=== PATIENT | female | born 1960 | race Caucasian/White ===

== ENCOUNTER 2020-01-16 15:22 | Inpatient (IN) | payer BC ==
[~2020-01-16] VITALS: Ht 157.5 cm; Wt 98.2 kg
[2020-01-16 16:10] LABS: PARTIAL THROMBOPLASTIN TIME 24 SECONDS (22-32)
[2020-01-16] MEDS ORDERED: ceFOXitin 1 GM/D5W 50mL IVPB 1,000 GM in normal saline 100ml IV soln 100 ML IV ONE (16:40)
[2020-01-16] MEDS ORDERED: ipratropium/albuterol 3ml nebule NEB ONE (17:30)
[2020-01-16] MEDS ORDERED: RAMI10CA69 PO (17:50)
[2020-01-16] MEDS ORDERED: ondansetron/PF 4mg/2ml inj IV PRN (17:50)
[2020-01-16] MEDS ORDERED: morphine 2 MG/ML inj. syringe IV PRN ×2 (17:50)
[2020-01-16] MEDS ORDERED: HYDROcodone/acetaminophen 5mg/325mg tablet PO PRN (17:50)
[2020-01-16] MEDS ORDERED: LORazepam 2 mg/ml vial IV PRN (17:50)
[2020-01-16] MEDS ORDERED: acetaminophen 325mg tablet PO PRN (17:50)
[2020-01-16] MEDS ORDERED: magnesium 4gm in 100ml NS 100 ML IV PRN (17:50)
[2020-01-16] MEDS ORDERED: magnesium Cl slow-release 64mg tablet PO PRN (17:50)
[2020-01-16] MEDS ORDERED: ALLO100T25 PO (17:50)
[2020-01-16] MEDS ORDERED: LORazepam 1 MG tablet PO PRN (17:50)
[2020-01-16] MEDS ORDERED: TRIA1TAB5 PO (17:50)
[2020-01-16] MEDS ORDERED: ALBU90AE IH (17:50)
[2020-01-16] MEDS ORDERED: mag hydrox/Alum hydrox/simeth 30ml oral suspension PO PRN (17:50)
[2020-01-16] MEDS ORDERED: potassium CL 10mEq/100ml bag 100 ML IV PRN ×2 (17:50)
[2020-01-16] MEDS ORDERED: magnesium 2GM in 50ml NS 50 ML IV PRN (17:50)
[2020-01-16] MEDS ORDERED: potassium Cl 20 mEq SR tablet PO PRN ×2 (17:50)
[2020-01-16] MEDS ORDERED: ATOR20TA66 PO (17:50)
[2020-01-16] MEDS ORDERED: LABE200T5 PO (17:50)
[2020-01-16] MEDS ORDERED: ceFOXitin 1 GM/D5W 50mL IVPB 1 GM in normal saline 100ml IV soln 100 ML IV ONE (18:05)
[2020-01-16] MEDS ORDERED: non-formulary drug (Albuterol Sulfate (Proair Respiclick) 2 PUFFS) IH PRN (18:15)
[2020-01-16] MEDS ORDERED: albuterol 2.5 MG/3 ML nebule NEB PRN (18:15)
--- NOTE | 2020-01-16 19:15 | NUR ---
Patient in room ED 6. I have received report from Margarita MCKEE and had the opportunity to ask questions and assume patient care.
[2020-01-16 19:34] VITALS: BP 126/61
[2020-01-16] MEDS: K and/or MAG REPLACEMENT MC SCH (20:45)
[2020-01-16] MEDS ORDERED: temazepam 15mg capsule PO PRN (21:00)
[2020-01-16] MEDS: ciprofloxacin lact 400MG/200ML 200 ML IV SCH (21:19)
[2020-01-16] MEDS: labetalol 100mg tablet PO SCH (21:19)
[2020-01-16] MEDS: normal saline 1000ml 1,000 ML IV SCH (21:19)
[2020-01-16] MEDS: docusate sod 100mg capsule PO SCH (21:19)
[2020-01-16] MEDS: allopurinol 100mg tablet PO SCH (21:20)
[2020-01-16] MEDS: heparin, porcine 5000 units/ml vial SQ SCH (21:36)
[2020-01-16 22:00] VITALS: BP 126/48
[2020-01-16] MEDS: metroNIDAZOLE-Flagyl 500mg/NS 100 ML IV SCH (23:24)
[2020-01-17] MEDS: acetaminophen 325mg tablet PO PRN (02:19)
--- NOTE | 2020-01-17 02:30 | NUR ---
pt wearing 2 yellow chains with 4 charms. removed in anticipation for procedure today. Items placed in a labeled denture cup & placed in pts purse per her request. (on night stand)
[2020-01-17 03:13] LABS: BASOPHILS % (AUTO) 0.2 % (0-1); EOSINOPHILS % (AUTO) 0.3 % (0-6); HEMOGLOBIN 13.6 g/dl (12.0-16.0); LYMPHOCYTES # (AUTO) 1.2 X10'3 (1.1-4.8); LYMPHOCYTES % (AUTO) 11.1 % (21-51); MEAN CORPUSCULAR HEMOGLOBIN 36.3 PG (27.0-31.0); MEAN CORPUSCULAR HGB CONC 34.1 g/dL (33.0-36.5); MEAN CORPUSCULAR VOLUME 106.3 FL (78-98); MEAN PLATELET VOLUME 7.4 FL (7.4-10.4); MONOCYTES # (AUTO) 0.6 X10'3 (0-0.9); NEUTROPHILS # (AUTO) 8.9 X10'3 (1.8-7.7); NEUTROPHILS % (AUTO) 82.4 % (42-75); PLATELET COUNT 144 X10'3 (140-440); RED BLOOD COUNT 3.76 X10'6 (4.20-5.60); WHITE BLOOD COUNT 10.8 X10'3 (4.5-11.0)
[2020-01-17 03:32] LABS: ALANINE AMINOTRANSFERASE 152 U/L (12-78); ALBUMIN 2.9 G/DL (3.4-5.0); ALKALINE PHOSPHATASE 137 IU/L (46-116); ANION GAP 7 (8-16); ASPARTATE AMINO TRANSFERASE 137 U/L (10-37); BILIRUBIN,TOTAL 2.1 MG/DL (0.1-1.0); BLOOD UREA NITROGEN 6 MG/DL (7-18); BUN/CREATININE RATIO 9.5 (6.6-38.0); CALCIUM 8.6 MG/DL (8.5-10.1); CHLORIDE 102 MMOL/L (99-107); CHOL/HDL RATIO 2.3 (0.00-4.99); CHOLESTEROL 115 MG/DL (0-200); CREATININE 0.63 MG/DL (0.40-0.90); GLUCOSE 158 MG/DL (70-104); HDL CHOLESTEROL 51 MG/DL (35-60); LDL CHOLESTEROL 42 MG/DL (50-100); MAGNESIUM 2.7 MG/DL (1.5-2.4); POTASSIUM 3.8 MMOL/L (3.5-5.1); SODIUM 137 MMOL/L (135-145); TOTAL CARBON DIOXIDE 28.3 MMOL/L (24-32); TOTAL PROTEIN 5.9 G/DL (6.4-8.2); TRIGLYCERIDES 167 MG/DL (20-135); eGFR > 90 ML/MIN
[2020-01-17 06:00] VITALS: BP 129/56
--- NOTE | 2020-01-17 06:05 | NUR ---
received report from uzma jacob
--- NOTE | 2020-01-17 06:25 | NUR ---
Problems reprioritized. Patient report given, questions answered & plan of care reviewed with Indu MCKEE.
[2020-01-17] MEDS: metroNIDAZOLE-Flagyl 500mg/NS 100 ML IV SCH ×2 (07:28→15:50)
[2020-01-17] MEDS: docusate sod 100mg capsule PO SCH ×2 (07:29→20:38)
[2020-01-17] MEDS: allopurinol 100mg tablet PO SCH ×2 (07:30→20:38)
[2020-01-17] MEDS: atorvastatin 20mg tablet PO SCH (07:31)
[2020-01-17] MEDS: labetalol 100mg tablet PO SCH ×2 (07:31→21:01)
[2020-01-17] MEDS: lisinopril 20mg tablet PO SCH (07:32)
[2020-01-17] MEDS: heparin, porcine 5000 units/ml vial SQ SCH ×2 (07:34→20:00)
[2020-01-17] MEDS: nicotine 14mg patch - 24hr TD SCH (07:36)
[2020-01-17] MEDS: normal saline 1000ml 1,000 ML IV SCH ×3 (07:37→23:47)
[2020-01-17] MEDS: K and/or MAG REPLACEMENT MC SCH ×2 (07:39→20:00)
--- NOTE | 2020-01-17 08:49 | NUR ---
PT IS WHEELED DOWN TO HIDA SCAN AT THIS TIME
[2020-01-17] MEDS ORDERED: sincalide inj 1.2 MCG in normal saline 50ml IV soln 50 ML IV ONE (10:00)
[2020-01-17] MEDS: albuterol 2.5 MG/3 ML nebule NEB SCH ×4 (12:00→23:43)
[2020-01-17 12:15] VITALS: BP 113/59
[2020-01-17] MEDS: ciprofloxacin lact 400MG/200ML 200 ML IV SCH ×2 (12:20→20:40)
[2020-01-17] MEDS: HYDROcodone/acetaminophen 10/325mg tab PO PRN ×2 (12:26→16:23)
[2020-01-17 18:00] VITALS: BP 100/53
--- NOTE | 2020-01-17 18:06 | NUR ---
gave report to uzma shepherd
[2020-01-17 20:30] VITALS: BP 135/81
[2020-01-17 22:00] VITALS: BP 111/54
[2020-01-18] VITALS (20 sets, daily range): BP systolic 100–152; BP diastolic 40–88
[2020-01-18] MEDS: metroNIDAZOLE-Flagyl 500mg/NS 100 ML IV SCH ×3 (00:12→16:00)
[2020-01-18] MEDS: albuterol 2.5 MG/3 ML nebule NEB SCH ×6 (03:03→23:00)
[2020-01-18 04:54] LABS: BASOPHILS % (AUTO) 0.1 % (0-1); EOSINOPHILS # (AUTO) 0.1 X10'3 (0-0.9); EOSINOPHILS % (AUTO) 0.5 % (0-6); HEMATOCRIT 36.2 % (35.0-45.0); HEMOGLOBIN 12.3 g/dl (12.0-16.0); LYMPHOCYTES # (AUTO) 1.4 X10'3 (1.1-4.8); LYMPHOCYTES % (AUTO) 12.4 % (21-51); MEAN CORPUSCULAR HEMOGLOBIN 36.1 PG (27.0-31.0); MEAN CORPUSCULAR VOLUME 106.1 FL (78-98); MEAN PLATELET VOLUME 7.7 FL (7.4-10.4); MONOCYTES # (AUTO) 0.7 X10'3 (0-0.9); MONOCYTES % (AUTO) 5.9 % (2-12); NEUTROPHILS # (AUTO) 9.1 X10'3 (1.8-7.7); NEUTROPHILS % (AUTO) 81.1 % (42-75); PLATELET COUNT 126 X10'3 (140-440); RED BLOOD COUNT 3.41 X10'6 (4.20-5.60); RED CELL DISTRIBUTION WIDTH 13.3 % (11.5-14.5); WHITE BLOOD COUNT 11.2 X10'3 (4.5-11.0)
[2020-01-18 05:10] LABS: ALANINE AMINOTRANSFERASE 80 U/L (12-78); ALBUMIN 2.6 G/DL (3.4-5.0); ALBUMIN/GLOBULIN RATIO 0.8 (1.1-1.5); ALKALINE PHOSPHATASE 178 IU/L (46-116); ANION GAP 5 (8-16); ASPARTATE AMINO TRANSFERASE 44 U/L (10-37); BILIRUBIN,TOTAL 2.3 MG/DL (0.1-1.0); BLOOD UREA NITROGEN 9 MG/DL (7-18); BUN/CREATININE RATIO 15.5 (6.6-38.0); CALCIUM 8.8 MG/DL (8.5-10.1); CHLORIDE 102 MMOL/L (99-107); CREATININE 0.58 MG/DL (0.40-0.90); GLUCOSE 136 MG/DL (70-104); POTASSIUM 3.7 MMOL/L (3.5-5.1); SODIUM 135 MMOL/L (135-145); TOTAL CARBON DIOXIDE 27.6 MMOL/L (24-32); TOTAL PROTEIN 5.8 G/DL (6.4-8.2); eGFR > 90 ML/MIN
--- NOTE | 2020-01-18 07:05 | NUR ---
Patient in room [facility]TH[facility] 4015A. I have received report from RAFI BOWEN and had the opportunity to ask questions and assume patient care.
[2020-01-18] MEDS: K and/or MAG REPLACEMENT MC SCH ×2 (07:17→20:00)
[2020-01-18] MEDS: labetalol 100mg tablet PO SCH ×2 (07:45→19:44)
[2020-01-18] MEDS: atorvastatin 20mg tablet PO SCH (07:53)
[2020-01-18] MEDS: docusate sod 100mg capsule PO SCH ×2 (07:53→19:44)
[2020-01-18] MEDS: lisinopril 20mg tablet PO SCH (07:54)
[2020-01-18] MEDS: heparin, porcine 5000 units/ml vial SQ SCH ×2 (07:59→19:50)
[2020-01-18] MEDS: allopurinol 100mg tablet PO SCH ×2 (07:59→19:43)
[2020-01-18] MEDS: nicotine 14mg patch - 24hr TD SCH (08:00)
[2020-01-18] MEDS ORDERED: BUPIVAcaine/PF 2.5 mg/ml (0.25%) 30ml vial ONE (08:21)
[2020-01-18] MEDS ORDERED: ceFAZolin 1000mg inj ONE (08:21)
--- NOTE | 2020-01-18 09:45 | NUR ---
from lab...pt has [place] antibodies, will try to find match for OR. paged [phone] Dr Bo.
[2020-01-18] MEDS: normal saline 1000ml 1,000 ML IV SCH ×2 (09:47→22:58)
--- NOTE | 2020-01-18 09:50 | NUR ---
DR CHONG CALLED BACK, NOTIFIED OF BLOOD ANTIBODIES, ALREADY AWARE
[2020-01-18] MEDS ORDERED: iohexol 300mg/ml 100ml inj. ONE (10:03)
[2020-01-18] MEDS ORDERED: ringers solution, lacted 1,000 ML IV SCH (11:29)
[2020-01-18] MEDS ORDERED: hydrALAZINE 20mg/ml inj. IV PRN (11:30)
[2020-01-18] MEDS ORDERED: fentaNYL/PF 50MCG/1 ML 2ML syringe IV PRN ×2 (11:30)
[2020-01-18] MEDS ORDERED: morphine 4 MG/ML inj SYRINge IV PRN (11:30)
[2020-01-18] MEDS ORDERED: morphine 2 MG/ML inj. syringe IV PRN (11:30)
[2020-01-18] MEDS ORDERED: labetalol 20mg/4ml (5mg/ml) syringe IV PRN (11:30)
[2020-01-18] MEDS ORDERED: ondansetron/PF 4mg/2ml inj IV PRN ×2 (11:30→16:50)
[2020-01-18] MEDS: ciprofloxacin lact 400MG/200ML 200 ML IV SCH ×2 (12:31→19:46)
[2020-01-18] MEDS ORDERED: rocuronium 10mg/ml inj IV ONE ×2 (14:41→15:01)
[2020-01-18] MEDS ORDERED: sevoflurane 250ml liquid IH ONE (14:41)
[2020-01-18] MEDS ORDERED: fentaNYL/PF 50MCG/1 ML 2ML syringe ONE (14:47)
[2020-01-18] MEDS ORDERED: midazolam 2 mg/2 ml injection ONE (14:47)
[2020-01-18] MEDS ORDERED: propofol inj 20 ML IV ONE (15:00)
[2020-01-18] MEDS ORDERED: LIDOcaine 2% (20mg/ml) 5ml vial ONE (15:01)
[2020-01-18] MEDS ORDERED: ondansetron/PF 4mg/2ml inj ONE (15:03)
[2020-01-18] MEDS ORDERED: dexamethasone sod phosphate 4mg/ml inj. ONE (15:03)
[2020-01-18] MEDS ORDERED: sugammadex 200mg/2ml injection IV ONE (15:18)
[2020-01-18] MEDS ORDERED: albumin (Human) 5% 250ml 250 ML IV ONE (15:38)
[2020-01-18] MEDS ORDERED: gentamicin 40 MG/1 ML inj ONE (15:57)
[2020-01-18] MEDS ORDERED: clindamycin phosphate 150mg/ml inj. ONE (15:57)
[2020-01-18] MEDS ORDERED: HYDROcodone/acetaminophen 10/325mg tab PO PRN (16:50)
--- NOTE | 2020-01-18 16:55 | NUR ---
Received from OR via BED, accompanied by Anesthesiologist TANA and report given by Anesthesiolgist. PT SLEEPY, OXYGENATING 90-92% ON 10 LPM 02 VIA MASK, NO RESP DISTRESS. ANESTHESIA SAYS SAO2 OVER 90% IS FINE. ENCOURAGED PATIENT TO C&DB. PT DENIES NAUSEA OR PAIN AT THIS TIME. SURGERY WENT LAP TO OPEN, 2 LARGE DSGS TO ABD. CDI. SANDRO DRAIN TO ABD WITH SEROSANGINOUS OUTPUT. FC PATENT WITH DARK KYLE URINE. SCDS ON LEGS. VSS. RESP TX ORDERED.
--- NOTE | 2020-01-18 17:05 | NUR ---
Patient in room [facility]TH[facility] 4015A. I have received report from RAFI ZARATE IN RECOVERY and had the opportunity to ask questions and assume patient care.
[2020-01-18] MEDS ORDERED: ipratropium/albuterol 3ml nebule IH ONE (17:10)
--- NOTE | 2020-01-18 17:45 | NUR ---
V/S STABLE, NO RESP DISTRESS. . ENCOURAGED PATIENT TO C&DB. PT DENIES NAUSEA OR PAIN AT THIS TIME. 2 LARGE DSGS TO ABD. CDI. SANDRO DRAIN TO ABD WITH SEROSANGINOUS OUTPUT. FC PATENT WITH DARK KYLE URINE. SCDS ON LEGS. VSS. RESP TX GIVEN. PATIENT PLACED ON TELE AND TAKEN TO 4015 A WITH ALL BELONGINGS AND HOOKED UP TO MONITORS IN ROOM AND REPORT GIVEN TO SPECIAL PROCEDURES TECH WHO HAS TAKEN OVER PATIENT CARE.
--- NOTE | 2020-01-18 18:42 | NUR ---
Problems reprioritized. Patient report given, questions answered & plan of care reviewed with RAFI MEDINA & RAFI CAMACHO.
[2020-01-18] MEDS: lactobacillus rhamnosus 10,000 MMU CELLS/CAPSULE PO SCH (20:00)
--- NOTE | 2020-01-18 21:00 | NUR ---
patient found sitting in chair to have found large amount of saturation on gown. Patient placed in chair at 1999 at that time patients dressing was clean dry and intact. Patient placed back in bed and vitals taken 130/[address] Wayne paged at [phone]. Dr sommer returned call [phone] said no new orders dressing reinforced with ABD and foam tape. Report given to lisa she is assuming patient care as of 2129
--- NOTE | 2020-01-18 21:45 | NUR ---
Patient in room [facility]TH[facility] 4015. I have received report from Sophia RN and Joanie RN and had the opportunity to ask questions and assume patient care. Pt is currently resting in bed with no signs of distress. She is on 2L via N/C, Bp 130/58. BLL, call light is in reach, non skid socks are on. Will continue to monitor.
--- NOTE | 2020-01-18 21:46 | NUR ---
Patient in room [facility]TH[facility] 4015. I have received report from Mary and had the opportunity to ask questions and assume patient care.
[2020-01-18] MEDS: HYDROcodone/acetaminophen 10/325mg tab PO PRN (22:02)
--- NOTE | 2020-01-18 22:05 | NUR ---
Dr Bo came to see the pt. Wants Q1h vitals and to be called if pt status changes.
[2020-01-18 22:46] LABS: BASOPHILS % (AUTO) 0.2 % (0-1); EOSINOPHILS % (AUTO) 0 % (0-6); HEMOGLOBIN 11.9 g/dl (12.0-16.0); LYMPHOCYTES # (AUTO) 0.4 X10'3 (1.1-4.8); MEAN PLATELET VOLUME 7.8 FL (7.4-10.4); MONOCYTES # (AUTO) 0.3 X10'3 (0-0.9)
[2020-01-18 22:47] LABS: HEMATOCRIT 34.4 % (35.0-45.0); MEAN CORPUSCULAR HEMOGLOBIN 36.9 PG (27.0-31.0); MEAN CORPUSCULAR HGB CONC 34.6 g/dL (33.0-36.5); MEAN CORPUSCULAR VOLUME 106.7 FL (78-98); NEUTROPHILS # (AUTO) 8.2 X10'3 (1.8-7.7); NEUTROPHILS % (AUTO) 91.8 % (42-75); RED BLOOD COUNT 3.22 X10'6 (4.20-5.60); WHITE BLOOD COUNT 8.9 X10'3 (4.5-11.0)
[2020-01-18 23:02] LABS: PLATELET COUNT 136 X10'3 (140-440)
[2020-01-19] VITALS (10 sets, daily range): BP systolic 104–138; BP diastolic 46–67
[2020-01-19] MEDS: metroNIDAZOLE-Flagyl 500mg/NS 100 ML IV SCH ×2 (00:30→08:39)
[2020-01-19] MEDS: HYDROcodone/acetaminophen 10/325mg tab PO PRN ×3 (02:14→14:57)
[2020-01-19] MEDS: albuterol 2.5 MG/3 ML nebule NEB SCH ×6 (03:00→23:00)
[2020-01-19 06:07] LABS: BASOPHILS % (AUTO) 0.1 % (0-1); EOSINOPHILS % (AUTO) 0 % (0-6); HEMATOCRIT 34.1 % (35.0-45.0); HEMOGLOBIN 11.6 g/dl (12.0-16.0); LYMPHOCYTES # (AUTO) 0.6 X10'3 (1.1-4.8); LYMPHOCYTES % (AUTO) 7.2 % (21-51); MEAN CORPUSCULAR HEMOGLOBIN 36.4 PG (27.0-31.0); MEAN CORPUSCULAR HGB CONC 34.1 g/dL (33.0-36.5); MEAN CORPUSCULAR VOLUME 106.8 FL (78-98); MONOCYTES # (AUTO) 0.4 X10'3 (0-0.9); MONOCYTES % (AUTO) 5.3 % (2-12); NEUTROPHILS # (AUTO) 6.8 X10'3 (1.8-7.7); NEUTROPHILS % (AUTO) 87.4 % (42-75); PLATELET COUNT 143 X10'3 (140-440); RED BLOOD COUNT 3.19 X10'6 (4.20-5.60); WHITE BLOOD COUNT 7.8 X10'3 (4.5-11.0)
[2020-01-19 06:27] LABS: ALANINE AMINOTRANSFERASE 73 U/L (12-78); ALBUMIN 2.5 G/DL (3.4-5.0); ALBUMIN/GLOBULIN RATIO 0.8 (1.1-1.5); ALKALINE PHOSPHATASE 230 IU/L (46-116); ANION GAP 4 (8-16); ASPARTATE AMINO TRANSFERASE 63 U/L (10-37); BLOOD UREA NITROGEN 9 MG/DL (7-18); BUN/CREATININE RATIO 17.6 (6.6-38.0); CALCIUM 8.6 MG/DL (8.5-10.1); CHLORIDE 107 MMOL/L (99-107); CREATININE 0.51 MG/DL (0.40-0.90); GLUCOSE 162 MG/DL (70-104); POTASSIUM 4.5 MMOL/L (3.5-5.1); SODIUM 140 MMOL/L (135-145); TOTAL CARBON DIOXIDE 28.6 MMOL/L (24-32); TOTAL PROTEIN 5.8 G/DL (6.4-8.2); eGFR > 90 ML/MIN
--- NOTE | 2020-01-19 06:48 | NUR ---
Problems reprioritized. Patient report given, questions answered & plan of care reviewed with Berta MCKEE.
[2020-01-19] MEDS: normal saline 1000ml 1,000 ML IV SCH ×3 (06:57→19:35)
--- NOTE | 2020-01-19 07:32 | NUR ---
Patient in room ORTH[facility] 4015. I have received report from Hedy MCKEE and had the opportunity to ask questions and assume patient care.
[2020-01-19] MEDS: nicotine 14mg patch - 24hr TD SCH (08:00)
[2020-01-19] MEDS: allopurinol 100mg tablet PO SCH ×2 (08:00→19:29)
[2020-01-19] MEDS: K and/or MAG REPLACEMENT MC SCH ×2 (08:00→20:00)
[2020-01-19] MEDS: lactobacillus rhamnosus 10,000 MMU CELLS/CAPSULE PO SCH ×2 (08:40→19:29)
[2020-01-19] MEDS: atorvastatin 20mg tablet PO SCH (08:40)
[2020-01-19] MEDS: docusate sod 100mg capsule PO SCH ×2 (08:40→19:29)
[2020-01-19] MEDS: labetalol 100mg tablet PO SCH ×2 (08:41→19:29)
[2020-01-19] MEDS: lisinopril 20mg tablet PO SCH (08:41)
[2020-01-19] MEDS: heparin, porcine 5000 units/ml vial SQ SCH ×2 (08:42→19:29)
[2020-01-19] MEDS: ciprofloxacin lact 400MG/200ML 200 ML IV SCH ×2 (10:02→19:34)
[2020-01-19] MEDS ORDERED: cycloSPORINE 0.05% ophthalmic emulsion EACHEYE PRN (10:05)
[2020-01-19] MEDS ORDERED: omega-3 acid ethyl esters 1GM capsule PO ONE (10:05)
[2020-01-19] MEDS: metroNIDAZOLE 500mg tablet PO SCH (16:19)
--- NOTE | 2020-01-19 18:15 | NUR ---
Problems reprioritized. Patient report given, questions answered & plan of care reviewed with Sophia MCKEE and Joanie MCKEE.
[2020-01-20] MEDS: metroNIDAZOLE 500mg tablet PO SCH ×2 (00:08→09:18)
[2020-01-20] MEDS: albuterol 2.5 MG/3 ML nebule NEB SCH ×3 (03:00→11:16)
[2020-01-20] MEDS: normal saline 1000ml 1,000 ML IV SCH (05:18)
[2020-01-20 06:00] VITALS: BP 143/74
--- NOTE | 2020-01-20 06:26 | NUR ---
Problems reprioritized. Patient report given, questions answered & plan of care reviewed with
--- NOTE | 2020-01-20 06:36 | NUR ---
Patient in room [facility]TH[facility] 4015A. I have received report from RAFI TONEY and had the opportunity to ask questions and assume patient care.
[2020-01-20 06:41] LABS: BASOPHILS % (AUTO) 0.2 % (0-1); EOSINOPHILS # (AUTO) 0.1 X10'3 (0-0.9); EOSINOPHILS % (AUTO) 1.5 % (0-6); HEMATOCRIT 35.6 % (35.0-45.0); HEMOGLOBIN 11.8 g/dl (12.0-16.0); LYMPHOCYTES # (AUTO) 1.7 X10'3 (1.1-4.8); LYMPHOCYTES % (AUTO) 21.8 % (21-51); MEAN CORPUSCULAR HEMOGLOBIN 35.5 PG (27.0-31.0); MEAN CORPUSCULAR HGB CONC 33.1 g/dL (33.0-36.5); MEAN CORPUSCULAR VOLUME 107.4 FL (78-98); MEAN PLATELET VOLUME 7.6 FL (7.4-10.4); MONOCYTES # (AUTO) 0.7 X10'3 (0-0.9); MONOCYTES % (AUTO) 9.2 % (2-12); NEUTROPHILS # (AUTO) 5.2 X10'3 (1.8-7.7); NEUTROPHILS % (AUTO) 67.3 % (42-75); PLATELET COUNT 186 X10'3 (140-440); RED BLOOD COUNT 3.31 X10'6 (4.20-5.60); RED CELL DISTRIBUTION WIDTH 13.1 % (11.5-14.5); WHITE BLOOD COUNT 7.8 X10'3 (4.5-11.0)
[2020-01-20 07:03] LABS: ALANINE AMINOTRANSFERASE 58 U/L (12-78); ALBUMIN 2.6 G/DL (3.4-5.0); ALBUMIN/GLOBULIN RATIO 0.8 (1.1-1.5); ALKALINE PHOSPHATASE 190 IU/L (46-116); ANION GAP 3 (8-16); ASPARTATE AMINO TRANSFERASE 37 U/L (10-37); BILIRUBIN,TOTAL 0.7 MG/DL (0.1-1.0); BLOOD UREA NITROGEN 8 MG/DL (7-18); BUN/CREATININE RATIO 14.8 (6.6-38.0); CALCIUM 8.7 MG/DL (8.5-10.1); CHLORIDE 108 MMOL/L (99-107); CREATININE 0.54 MG/DL (0.40-0.90); GLUCOSE 138 MG/DL (70-104); MAGNESIUM 1.9 MG/DL (1.5-2.4); POTASSIUM 3.3 MMOL/L (3.5-5.1); SODIUM 142 MMOL/L (135-145); TOTAL CARBON DIOXIDE 31.1 MMOL/L (24-32); TOTAL PROTEIN 5.8 G/DL (6.4-8.2); eGFR > 90 ML/MIN
[2020-01-20] MEDS ORDERED: omega-3 acid ethyl esters 1GM capsule PO SCH (08:00)
[2020-01-20] MEDS: nicotine 14mg patch - 24hr TD SCH (08:00)
[2020-01-20] MEDS: K and/or MAG REPLACEMENT MC SCH (08:00)
[2020-01-20] MEDS: docusate sod 100mg capsule PO SCH (09:13)
[2020-01-20] MEDS: lactobacillus rhamnosus 10,000 MMU CELLS/CAPSULE PO SCH (09:17)
[2020-01-20] MEDS: acetaminophen 325mg tablet PO PRN (09:17)
[2020-01-20] MEDS: atorvastatin 20mg tablet PO SCH (09:18)
[2020-01-20] MEDS: lisinopril 20mg tablet PO SCH (09:19)
[2020-01-20] MEDS: allopurinol 100mg tablet PO SCH (09:19)
[2020-01-20] MEDS: labetalol 100mg tablet PO SCH (09:20)
[2020-01-20] MEDS: heparin, porcine 5000 units/ml vial SQ SCH (09:23)
[2020-01-20] MEDS: ciprofloxacin lact 400MG/200ML 200 ML IV SCH (09:29)
[2020-01-20] MEDS ORDERED: LACT1CAP26 PO (09:56)
[2020-01-20] MEDS ORDERED: LEVO500T89 PO (09:56)
[2020-01-20] MEDS ORDERED: METR500T PO (09:56)
[2020-01-20 10:00] VITALS: BP 140/66
--- NOTE | 2020-01-20 14:42 | NUR ---
DC INSTRUCTIONS GIVEN TO PT AND ANSWERED QUESTIONS. IV AND SANDRO DRAIN REMOVED BY RAFI SIM. SANDRA ASSISTED IN DRESSING PT. WHEELED PT DOWN TO PRIVATE VEHICLE IN STABLE CONDITION.
== END 2020-01-20 13:05 | disposition home or self-care (01) | DRG 415 ==
LOC: ER 15:24 → ED HOLD 17:47 → EDBEDREQ 18:49 → ORTHO 4S 20:04
PROVIDERS: ADMIT Internal Medicine; ATTEND Family Medicine
PROC: CF141ZZ Planar Nuclear Medicine Imaging of Gallbladder using Technetium 99m (Tc-99m) (ICD-10-PCS; 2020-01-17)
PROC: BW211ZZ Computerized Tomography (CT Scan) of Abdomen and Pelvis using Low Osmolar Contrast (ICD-10-PCS; 2020-01-18)
PROC: 0FT40ZZ Resection of Gallbladder, Open Approach (ICD-10-PCS; principal; 2020-01-18 14:41)
DX: K80.62 Calculus of gallbladder and bile duct with acute cholecystitis without obstruction (principal); K82.1 Hydrops of gallbladder; K82.A1 Gangrene of gallbladder in cholecystitis; E78.5 Hyperlipidemia, unspecified; E66.01 Morbid (severe) obesity due to excess calories; F10.20 Alcohol dependence, uncomplicated; F17.219 Nicotine dependence, cigarettes, with unspecified nicotine-induced disorders; I10 Essential (primary) hypertension; J44.9 Chronic obstructive pulmonary disease, unspecified; Z53.31 Laparoscopic surgical procedure converted to open procedure; Z68.39 Body mass index [BMI] 39.0-39.9, adult; Z71.41 Alcohol abuse counseling and surveillance of alcoholic; Z71.6 Tobacco abuse counseling
CPT/HCPCS: 96365; 99285; Z7506; Z7508; 36415; 71045; 74177; 74181; 76700; 78226; 80053; 80061; 82948; 83605; 83735; 84145; 85025; 85610; 85730; 86870; 86885; 86900; 86901; 86902; 86905; 87040; 87081; 93005; 94640; 94760; A4215; A4314; A4618; A6258; A6402; A7000; A9537; C9250; C9399; G0378; J0690; J0694; J0744; J1100; J1580; J1644; J2001; J2250; J2270; J2405; J2704; J3010; J3475; J3490; J7030; J7120; P9045; Q9967